=== PATIENT | female | born 1960 | race Caucasian/White ===

== ENCOUNTER 2018-03-26 07:41 | Outpatient (CLI) | payer BC ==
--- NOTE | 2018-03-26 08:44 | ULT ---
HEPATIC ULTRASOUND: HISTORY: Chronic hepatitis B. FINDINGS: Multiple longitudinal and transverse images of the liver are obtained using a multihertz curvilinear transducer. Real-time, color flow, and spectral waveform Doppler analysis demonstrates the liver to be unremarkable. No evidence of hepatic parenchymal mass is seen. Normal hepatopetal flow is seen i n the portal system. No evidence of hepatofugal flow is seen. The spleen is unremarkable and is of normal size measuring 8.6 x 3.6 x 3.1 cm. No evidence of ascites is seen. The common bile duct is of normal size without evidence of intrahepatic biliary dilatation. Visualized portion of the pancreas is unremarkable. The gallbladder is unremarkable with no evidence of gallstones. The common bile duct measures 4.3 mm . Unremarkable hepatic ultrasound with no significant evidence of cirrhosis seen. POS: [facility]
== END 2018-03-26 07:42 | disposition home or self-care (01) ==
LOC: BICULT 07:41
PROVIDERS: ATTEND Internal Medicine Gastroenterology
DX: B18.1 Chronic viral hepatitis B without delta-agent (principal)
CPT/HCPCS: 76705